=== PATIENT | male | born 1945 | race Caucasian/White ===

== ENCOUNTER 2019-05-15 06:56 | Day surgery (SDC) | payer MEDICARE, OTHER ==
[2019-05-15] MEDS: Polymyxin B/Trimethoprim 10 ML Bottle EYELF SCH ×4 (07:12→08:32)
[2019-05-15] MEDS: Brimonidine 0.2% Ophth Soln 5 ML Bottle EYELF SCH ×4 (07:16→08:32)
[2019-05-15] MEDS: Phenylephrine 2.5% Ophth Soln 2 ML Bot EYELF SCH ×6 (07:21→08:10)
[2019-05-15] MEDS: Tropicamide 1% Ophth Soln 15 ML Bottle EYELF SCH ×4 (07:25→07:57)
--- NOTE | 2019-05-15 07:39 | PCM.PREANE ---
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) Other: Reports: Diabetes (am blood [id number]), Sinus Problem, Depression (vagus nerve stimulator noted), Anxiety - Physical Assessment NPO Status Date: 05/14/19 NPO Status Time: 18:00 Vital Signs: Last Vital Signs Temp 36.7 C 05/15/19 07:00 Pulse 88 05/15/19 07:00 Resp 16 05/15/19 07:00 BP 132/81 05/15/19 07:00 Pulse Ox 96 05/15/19 07:00 Height: 1.78 m Weight: 108.862 kg ASA Class: 2 Mental Status: Alert & Oriented x3 Airway Class: Mallampati = 2 Dentition: Reports: Dentures (upper) Thyro-Mental Finger Breadths: 3 Mouth Opening Finger Breadths: 3 ROM/Head Extension: Full Lungs: Clear to Auscultation, Normal Respiratory Effort Cardiovascular: Regular Rate, Regular Rhythm, No Murmurs - Allergies Allergies/Adverse Reactions: Allergies Allergy/AdvReac Type Severity Reaction Status Date / Time No Known Allergies Allergy Verified 05/11/19 09:27 - Anesthesia Plan Pre-Op Medication Ordered: None - Acknowledgements Anesthesia Type Planned: MAC Pt an Appropriate Candidate for the Planned Anesthesia: Yes Alternatives and Risks of Anesthesia Discussed w Pt/Guardian: Yes Pt/Guardian Understands and Agrees with Anesthesia Plan: Yes PreAnesthesia Questionnaire - HOME MEDS Home Medications: Home Meds Desvenlafaxine [Desvenlafaxine ER] 100 mg PO DAILY 05/11/19 [History] Empagliflozin [Jardiance] 25 mg PO DAILY 05/11/19 [History] Insulin Degludec [Tresiba] 26 unit SQ DAILY 05/11/19 [History] Mirtazapine 90 mg PO BEDTIME 05/11/19 [History] Simvastatin 20 mg PO DAILY 05/11/19 [History] lamoTRIgine [Lamotrigine] 200 mg PO DAILY 01/17/20 [History] sitaGLIPtin Phos/Metformin HCl [Janumet 50-1,000 MG] 1 tab PO BID 05/11/19 [ History] LORazepam [Ativan] 2 mg PO ASDIRECTED 05/15/19 [History] - CURRENT (IN HOUSE) MEDS Current Meds: Current Medications Brimonidine Tartrate (Alphagan 0.2% Ophth Soln) 0 ml EYELF ASDIRECTED PITO Stop: 05/15/19 23:00 Last Admin: 05/15/19 07:16 Dose: 1 drop Cefuroxime Sodium (Zinacef) 0 mg EYELF ASDIRECTED PITO Stop: 05/15/19 23:00 Lidocaine HCl (Xylocaine-Mpf 1%) 1 ml INJECT ASDIRECTED PITO Stop: 05/15/19 23:00 Phenylephrine HCl (Akhil-Synephrine 2.5% Ophth Soln) 0 ml EYELF ASDIRECTED PITO Stop: 05/15/19 23:00 Last Admin: 05/15/19 07:29 Dose: 1 drop Pilocarpine HCl (Pilocar 4% Ophth Soln) 0 ml EYELF ASDIRECTED PITO Stop: 05/15/19 23:00 Polymyxin/Trimethoprim Sulfate (Polytrim Ophth Soln) 0 ml EYELF ASDIRECTED PITO Stop: 05/15/19 23:00 Last Admin: 05/15/19 07:12 Dose: 1 drop Tetracaine HCl (Tetracaine 0.5% Steri-Unit Jodee) 0 ml EYELF ASDIRECTED PITO Stop: 05/15/19 23:00 Tropicamide (Mydriacyl 1% Ophth Soln) 0 ml EYELF ASDIRECTED PITO Stop: 05/15/19 23:00 Last Admin: 05/15/19 07:33 Dose: 1 drop
[2019-05-15] MEDS: Cefuroxime 10 MG/ML SYRINGE EYELF SCH ×2 (07:59→08:31)
[2019-05-15] MEDS: Pilocarpine 4% Ophth Soln 15 ML Bot EYELF SCH ×2 (07:59→08:32)
[2019-05-15] MEDS: Tetracaine HCl/PF 0.5% 4 ML Bottle EYELF SCH ×3 (07:59→08:18)
[2019-05-15] MEDS: Lidocaine 1% PF 2 ML SDV INJECT SCH ×2 (07:59→08:19)
--- NOTE | 2019-05-15 08:34 | PCM48HPAN ---
Post Anesthesia Note - EVALUATION WITHIN 48HRS OF ANESTHETIC Vital Signs in Normal Range: Yes Patient Participated in Evaluation: Yes Respiratory Function Stable: Yes Airway Patent: Yes Cardiovascular Function Stable: Yes Hydration Status Stable: Yes Pain Control Satisfactory: Yes Nausea and Vomiting Control Satisfactory: Yes Mental Status Recovered: Yes Vital Signs: Last Vital Signs Temp 36.7 C 05/15/19 07:00 Pulse 88 05/15/19 07:00 Resp 16 05/15/19 07:00 BP 132/81 05/15/19 07:00 Pulse Ox 96 05/15/19 07:00
== END 2019-05-15 08:46 | disposition home or self-care (01) ==
LOC: JD.SDS 06:56
PROVIDERS: ATTEND Ophthalmology
DX: E10.36 Type 1 diabetes mellitus with diabetic cataract (principal); H25.813 Combined forms of age-related cataract, bilateral; H21.81 Floppy iris syndrome; H02.831 Dermatochalasis of right upper eyelid; H02.834 Dermatochalasis of left upper eyelid; H16.103 Unspecified superficial keratitis, bilateral; H16.223 Keratoconjunctivitis sicca, not specified as Sjogren's, bilateral; E78.00 Pure hypercholesterolemia, unspecified; F41.9 Anxiety disorder, unspecified; F32.9 Major depressive disorder, single episode, unspecified; Z79.899 Other long term (current) drug therapy; Z79.84 Long term (current) use of oral hypoglycemic drugs
CPT/HCPCS: 66984; J0697; J2001; C1780

== ENCOUNTER 2019-06-12 07:58 | Day surgery (SDC) | payer MEDICARE, OTHER ==
[~2019-06-12 07:58] MED LIST: Cefuroxime 10 MG/ML SYRINGE EYERT SCH; Lidocaine 1% PF 2 ML SDV INJECT SCH; Pilocarpine 4% Ophth Soln 15 ML Bot EYERT SCH
[2019-06-12] MEDS: Polymyxin B/Trimethoprim 10 ML Bottle EYERT SCH ×3 (08:19→10:23)
[2019-06-12] MEDS: Brimonidine 0.2% Ophth Soln 5 ML Bottle EYERT SCH ×3 (08:24→10:23)
[2019-06-12] MEDS: Phenylephrine 2.5% Ophth Soln 2 ML Bot EYERT SCH ×5 (08:30→10:04)
[2019-06-12] MEDS: Tropicamide 1% Ophth Soln 15 ML Bottle EYERT SCH ×4 (08:35→09:28)
--- NOTE | 2019-06-12 08:52 | PCM.PREANE ---
Preanesthetic Assessment - Anesthesia/Transfusion/Family Hx Anesthesia History: Prior Anesthesia Without Reaction Family History of Anesthesia Reaction: No Transfusion History: Prior Transfusion Without Reaction Intubation History: Unknown - Review of Systems General: No Symptoms Pulmonary: No Symptoms Cardiovascular: No Symptoms Gastrointestinal: No Symptoms Neurological: No Symptoms Other: Reports: Diabetes (IDDM, am glucose 135), Depression, Anxiety - Physical Assessment NPO Status Date: 06/11/19 NPO Status Time: 20:00 Vital Signs: Last Vital Signs Temp 36.3 C 06/12/19 08:00 Pulse 90 06/12/19 08:00 Resp 24 H 06/12/19 08:00 BP 133/78 06/12/19 08:00 Pulse Ox 90 L 06/12/19 08:00 Height: 1.78 m Weight: 113.852 kg ASA Class: 2 Mental Status: Alert & Oriented x3 Airway Class: Mallampati = 2 Dentition: Reports: Dentures (upper), Edentulous Thyro-Mental Finger Breadths: 3 Mouth Opening Finger Breadths: 3 ROM/Head Extension: Full Lungs: Clear to Auscultation, Normal Respiratory Effort Cardiovascular: Regular Rate, Regular Rhythm - Allergies Allergies/Adverse Reactions: Allergies Allergy/AdvReac Type Severity Reaction Status Date / Time No Known Allergies Allergy Verified 06/11/19 14:12 - Blood Blood Available: No Product(s) Available: None - Anesthesia Plan Pre-Op Medication Ordered: None - Acknowledgements Anesthesia Type Planned: MAC Pt an Appropriate Candidate for the Planned Anesthesia: Yes Alternatives and Risks of Anesthesia Discussed w Pt/Guardian: Yes Pt/Guardian Understands and Agrees with Anesthesia Plan: Yes PreAnesthesia Questionnaire - HOME MEDS Home Medications: Home Meds Desvenlafaxine [Desvenlafaxine ER] 100 mg PO DAILY 05/11/19 [History] Empagliflozin [Jardiance] 25 mg PO DAILY 05/11/19 [History] Insulin Degludec [Tresiba] 26 unit SQ DAILY 05/11/19 [History] Mirtazapine 90 mg PO BEDTIME 05/11/19 [History] Simvastatin 20 mg PO DAILY 05/11/19 [History] lamoTRIgine [Lamotrigine] 200 mg PO DAILY 05/11/19 [History] sitaGLIPtin Phos/Metformin HCl [Janumet 50-1,000 MG] 1 tab PO BID 05/11/19 [ History] LORazepam [Ativan] 2 mg PO ASDIRECTED 05/15/19 [History] Zinc Acetate [Galzin] 25 mg PO DAILY 06/11/19 [History] - CURRENT (IN HOUSE) MEDS Current Meds: Current Medications Brimonidine Tartrate (Alphagan 0.2% Ophth Soln) 0 ml EYERT ASDIRECTED PITO Stop: 06/12/19 18:00 Last Admin: 06/12/19 08:24 Dose: 1 drop Cefuroxime Sodium (Zinacef) 0 mg EYERT ASDIRECTED PITO Stop: 06/12/19 18:00 Lidocaine HCl (Xylocaine-Mpf 1%) 1 ml INJECT ASDIRECTED PITO Stop: 06/12/19 18:00 Phenylephrine HCl (Akhil-Synephrine 2.5% Ophth Soln) 0 ml EYERT ASDIRECTED PITO Stop: 06/12/19 18:00 Last Admin: 06/12/19 08:40 Dose: 1 drop Pilocarpine HCl (Pilocar 4% Ophth Soln) 0 ml EYERT ASDIRECTED PITO Stop: 06/12/19 18:00 Polymyxin/Trimethoprim Sulfate (Polytrim Ophth Soln) 0 ml EYERT ASDIRECTED PITO Stop: 06/12/19 18:00 Last Admin: 06/12/19 08:19 Dose: 1 drop Tetracaine HCl (Tetracaine 0.5% Steri-Unit Jodee) 0 ml EYERT ASDIRECTED PITO Stop: 06/12/19 18:00 Tropicamide (Mydriacyl 1% Ophth Soln) 0 ml EYERT ASDIRECTED PITO Stop: 06/12/19 18:00 Last Admin: 06/12/19 08:35 Dose: 1 drop
[2019-06-12] MEDS: Tetracaine HCl/PF 0.5% 4 ML Bottle EYERT SCH ×2 (09:57→10:10)
--- NOTE | 2019-06-12 10:28 | PCM48HPAN ---
Post Anesthesia Note - EVALUATION WITHIN 48HRS OF ANESTHETIC Vital Signs in Normal Range: Yes Patient Participated in Evaluation: Yes Respiratory Function Stable: Yes Airway Patent: Yes Cardiovascular Function Stable: Yes Hydration Status Stable: Yes Pain Control Satisfactory: Yes Nausea and Vomiting Control Satisfactory: Yes Mental Status Recovered: Yes Vital Signs: Last Vital Signs Temp 36.3 C 06/12/19 08:00 Pulse 90 06/12/19 08:00 Resp 24 H 06/12/19 08:00 BP 133/78 06/12/19 08:00 Pulse Ox 90 L 06/12/19 08:00
== END 2019-06-12 10:35 | disposition home or self-care (01) ==
LOC: JD.SDS 07:58
PROVIDERS: ATTEND Ophthalmology
DX: E11.36 Type 2 diabetes mellitus with diabetic cataract (principal); H25.811 Combined forms of age-related cataract, right eye; H52.31 Anisometropia; H16.223 Keratoconjunctivitis sicca, not specified as Sjogren's, bilateral; H02.834 Dermatochalasis of left upper eyelid; H02.831 Dermatochalasis of right upper eyelid; H16.103 Unspecified superficial keratitis, bilateral; E78.00 Pure hypercholesterolemia, unspecified; F41.9 Anxiety disorder, unspecified; F32.9 Major depressive disorder, single episode, unspecified; Z79.4 Long term (current) use of insulin; Z79.899 Other long term (current) drug therapy; Z96.1 Presence of intraocular lens; Z98.42 Cataract extraction status, left eye
CPT/HCPCS: 66984; J0697; J2001; C1780

== ENCOUNTER 2021-11-16 21:14 | Observation (INO) | payer MEDICARE, OTHER ==
[2021-11-17] MEDS ORDERED: Sodium Chloride 0.9% 1,000 ML IV SCH (07:30)
[2021-11-17] MEDS ORDERED: LAMOTRIGINE 100 MG PO SCH (14:00)
[2021-11-17] MEDS ORDERED: atorvaSTATin 20 MG Tab PO SCH (14:00)
[2021-11-17] MEDS ORDERED: MIRTAZAPINE 30 MG PO SCH (21:00)
[2021-11-18] MEDS ORDERED: DESVENLAFAXINE 100 MG PO SCH (09:00)
== END 2021-11-17 13:50 | disposition home or self-care (01) ==
LOC: JD.MS 21:14
PROVIDERS: ADMIT Hospitalist; ATTEND Hospitalist
DX: E11.649 Type 2 diabetes mellitus with hypoglycemia without coma (principal); E66.9 Obesity, unspecified; I63.319 Cerebral infarction due to thrombosis of unspecified middle cerebral artery; Z79.4 Long term (current) use of insulin; Z79.899 Other long term (current) drug therapy; Z79.84 Long term (current) use of oral hypoglycemic drugs; Z68.33 Body mass index [BMI] 33.0-33.9, adult
CPT/HCPCS: 36415; 80048; 82947; 85027; 97110; 97161; G0378